=== PATIENT | female | born 1940 | race Caucasian/White ===

== ENCOUNTER → 2017-04-09 | Outpatient (CLI) | payer MEDICARE ==
[~2017-04-09] MED LIST: ASPI325T17 PO; CARV25TA12 PO; FOLI20CA PO; GLUC1500 PO; LEVO75TA PO; OMEG1CAP34 PO; RED600CA2 PO
== END | disposition home or self-care (01) ==
LOC: CFH 10:01
PROVIDERS: ATTEND Family Medicine
DX: Z13.820 Encounter for screening for osteoporosis (principal); N95.8 Other specified menopausal and perimenopausal disorders
CPT/HCPCS: 77080

== ENCOUNTER 2020-09-18 11:50 | Emergency (ER) | payer MEDICARE ==
[~2020-09-18] VITALS: Ht 162.6 cm; Wt 48.9 kg
[~2020-09-18 11:50] MED LIST changes: -GLUC1500 PO; +GLUC15006 PO
--- NOTE | 2020-09-18 11:56 | NUR ---
supervisor cap and hat production: EKG done in triage
--- NOTE | 2020-09-18 12:08 | NUR ---
MD Quevedo at bedside for eval.
--- NOTE | 2020-09-18 12:33 | NUR ---
Pt reports feeling very anxious yesterday and faint. Visitor at bedside reports yesterday "HR was 171 and BP was 216/something, for about 4 or 5 minutes." Pt has hx of same episode x10 days ago. Pt also has hx of [place] "18-20 years ago."
[2020-09-18 12:38] LABS: BASOPHILS % (AUTO) 1 % (0-1); EOSINOPHILS % (AUTO) 2 % (1-7); LYMPHOCYTES % (AUTO) 20 % (22-44); MEAN CORPUSCULAR HEMOGLOBIN 32.6 pg (27.0-34.8); MEAN CORPUSCULAR HGB CONC 33.7 g/dL (32.4-35.8); MEAN PLATELET VOLUME 7.2 fL (7.4-10.4); MONOCYTES % (AUTO) 11 % (2-9); NEUTROPHILS % (AUTO) 66 % (42-75); PLATELET COUNT 228 x10^3/uL (130-400); RED BLOOD COUNT 3.97 x10^6/uL (3.82-5.3); RED CELL DISTRIBUTION WIDTH 13.3 % (9.6-15.2)
[2020-09-18 12:39] LABS: MD NO
[2020-09-18 12:40] LABS: ALBUMIN 3.3 g/dL (3.4-5.0); ANION GAP 4 mmol/L (5-15); CALCIUM 8.7 mg/dL (8.5-10.1); CHLORIDE 108 mmol/L (98-107)
[2020-09-18 12:44] LABS: TROPONIN I < 0.015 ng/mL (0.000-0.045)
--- NOTE | 2020-09-18 13:35 | NUR ---
BREAK RNl: PT TESTS RESULTED, VSS. CALL LIGHT W/I REACH. CHART UP FOR RECHECK.
[2020-09-18 14:29] VITALS: BP 141/65
== END 2020-09-18 14:31 | disposition home or self-care (01) ==
LOC: ED 12:52
DX: R00.2 Palpitations (principal); R00.0 Tachycardia, unspecified; R00.1 Bradycardia, unspecified; R07.9 Chest pain, unspecified; I25.2 Old myocardial infarction
CPT/HCPCS: 36415; 71045; 80048; 82040; 83735; 84443; 84484; 85025; 93005; 99285

== ENCOUNTER → 2020-10-15 | Outpatient (CLI) | payer MEDICARE ==
[~2020-10-15] MED LIST changes: +GADOTERATE 5 MMOL/10ML SYR ONE
== END | disposition home or self-care (01) ==
LOC: RAD 13:01
PROVIDERS: ATTEND Family Medicine
DX: G31.9 Degenerative disease of nervous system, unspecified (principal); R25.1 Tremor, unspecified; R42 Dizziness and giddiness
CPT/HCPCS: 70553; A9575

== ENCOUNTER → 2020-10-31 | Outpatient (CLI) | payer MEDICARE ==
[~2020-10-31] MED LIST changes: -GADOTERATE 5 MMOL/10ML SYR ONE; +REGADENOSON 0.4 MG/5 ML SYRINGE ONE
== END | disposition home or self-care (01) ==
LOC: CFH 06:44
PROVIDERS: ATTEND Internal Medicine Cardiovascular Disease
DX: I08.3 Combined rheumatic disorders of mitral, aortic and tricuspid valves (principal); I25.10 Atherosclerotic heart disease of native coronary artery without angina pectoris; I25.2 Old myocardial infarction; I10 Essential (primary) hypertension; Z87.891 Personal history of nicotine dependence
CPT/HCPCS: 78452; 93017; 93306; A9502; J2785

== ENCOUNTER 2021-03-24 16:14 | Emergency (ER) | payer MEDICARE ==
[~2021-03-24] VITALS: Ht 160 cm; Wt 52.2 kg
[~2021-03-24 16:14] MED LIST changes: -REGADENOSON 0.4 MG/5 ML SYRINGE ONE
[2021-03-24 16:25] VITALS: BP 112/68
[2021-03-24 17:25] LABS: BASOPHILS % (AUTO) 0 % (0-1); EOSINOPHILS % (AUTO) 2 % (1-7); LYMPHOCYTES % (AUTO) 22 % (22-44); MEAN CORPUSCULAR HEMOGLOBIN 32.6 pg (27.0-34.8); MEAN PLATELET VOLUME 7.1 fL (7.4-10.4); MONOCYTES % (AUTO) 10 % (2-9); NEUTROPHILS % (AUTO) 66 % (42-75); PLATELET COUNT 241 x10^3/uL (130-400); RED BLOOD COUNT 4.13 x10^6/uL (3.82-5.3); RED CELL DISTRIBUTION WIDTH 12.8 % (9.6-15.2)
[2021-03-24 17:30] LABS: ALBUMIN 3.1 g/dL (3.4-5.0); ANION GAP 3 mmol/L (5-15); CALCIUM 8.9 mg/dL (8.5-10.1); CHLORIDE 105 mmol/L (98-107)
[2021-03-24 17:43] LABS: ALANINE AMINOTRANSFERASE 26 U/L (12-78); ALKALINE PHOSPHATASE 47 U/L (45-117); BILIRUBIN,TOTAL 0.4 mg/dL (0.2-1.0); CREATININE 0.69 mg/dL (0.55-1.02); TOTAL PROTEIN 8.3 g/dL (6.4-8.2); TROPONIN I < 0.015 ng/mL (0.000-0.045)
[2021-03-24 17:57] LABS: FREE T4 (FREE THYROXINE) 1.04 ng/dL (0.76-1.46)
--- NOTE | 2021-03-24 18:37 | NUR ---
test lead application testing: Pt WHEELED to room from lobby at this time.
--- NOTE | 2021-03-24 18:41 | NUR ---
pt presents to ed with c/o chest pressure and high HR starting at 1500, states sx have resolved now. BARB Brown at bedside for eval
--- NOTE | 2021-03-24 19:00 | NUR ---
pt educated on dc instructions and follow-up, verbalized understanding. taken to dc desk via wheelchair accompanied by son
== END 2021-03-24 19:07 | disposition home or self-care (01) ==
LOC: ED 19:05
DX: R00.2 Palpitations (principal); R07.89 Other chest pain
CPT/HCPCS: 36415; 71045; 80053; 83735; 83880; 84439; 84443; 84484; 85025; 93005; 99285